=== PATIENT | male | born 2000 | race Caucasian/White ===

== ENCOUNTER 2018-03-26 13:42 | Emergency (ER) | payer MEDICAID ==
[~2018-03-26] VITALS: Ht 188 cm; Wt 68.2 kg
[2018-03-26 13:52] VITALS: BP 118/56; PULSE 94; TEMP 98.2
[2018-03-26] MEDS ORDERED: PERCOCET 325 MG1 TA3 PO (16:52)
== END 2018-03-26 17:11 | disposition home or self-care (01) ==
LOC: COL.ER 13:42
DX: S22.070A Wedge compression fracture of T9-T10 vertebra, initial encounter for closed fracture (principal); Y09 Assault by unspecified means